=== PATIENT | female | born 1950 | race Caucasian/White ===

== ENCOUNTER 2021-01-28 14:36 | Outpatient (REF) | payer MEDICARE, SELFPAY ==
[2021-01-28 16:28] LABS: Vitamin B12 572 pg/mL (200-900)
[2021-01-29 08:38] LABS: Syphilis Screen Reactive (Nonreactive)
[2021-02-08 13:57] LABS: RPR Quantitative Non-Reactive (Nonreactive); T.Pallidum Particle Agg Test Reactive (Nonreactive)
== END 2021-01-28 14:37 | disposition home or self-care (01) ==
LOC: HO.LAB 14:36
PROVIDERS: PCP Family Medicine; Visit Provider Psychiatry & Neurology Neurology
DX: G31.84 Mild cognitive impairment of uncertain or unknown etiology (principal)
CPT/HCPCS: 36415; 82607; 86592; 86780

== ENCOUNTER 2021-02-22 15:02 | Outpatient (REF) | payer MEDICARE, SELFPAY ==
--- NOTE | ~2021-02-22 | MR_ITS ---
EXAMINATION: MR BRAIN WITHOUT CONTRAST CLINICAL INFORMATION: Mild cognitive impairment. COMPARISON: None. TECHNIQUE: Multiplanar, multisequence imaging of the brain was performed without contrast. Slightly limited study with motion artifacts. FINDINGS: No diffusion abnormalities are identified to suggest an acute or subacute infarct. The ventricles are normal in size. No mass effect or midline shift is seen. Nonspecific mild subcentimeter foci of T2 hyperintense signal change in the cerebral white matter may be due to chronic microangiopathy. No extra-axial fluid collections are seen. The brainstem and cerebellum are normal. The gradient refocused acquisition is normal. The craniovertebral junction, marrow signal, and midline structures are normal. The major intracranial flow voids at the level of the [place] of [place] are preserved. The dural venous sinus flow voids are maintained. The mastoid air cells and paranasal sinuses are well aerated. Extensive spondylitic changes noted with disc-osteophyte complexes and facet arthropathy on sagittal T1-weighted imaging from the C3 through the C6 level. MR/MR head/brain wo con IMPRESSION: No acute process. Mild chronic white matter microangiopathy. Moderate multilevel cervical spondylosis partially visualized.
== END 2021-02-22 15:03 | disposition home or self-care (01) ==
LOC: HO.MRI 15:02
PROVIDERS: Visit Provider Psychiatry & Neurology Neurology
DX: G31.84 Mild cognitive impairment of uncertain or unknown etiology (principal)
CPT/HCPCS: 70551

== ENCOUNTER 2024-09-11 17:54 | Emergency (ER) | payer OTHER, SELFPAY ==
--- NOTE | ~2024-09-11 | XR_ITS ---
CLINICAL HISTORY: weakness 1 view chest x-ray Comparison: None Findings: No consolidation or effusion. Mild emphysematous changes suggested. No pneumothorax. Heart size is normal, for AP technique. Degenerative changes include imaged AC joints. IMPRESSION: No consolidation. This document has been electronically signed by: Jose E Vilchis MD on 09/11/2024 20:17:32
[2024-09-11 17:57] VITALS: BP 116/50; BP 132/62; PULSE 84; PULSE 85; RESP 16; TEMP 36.4; O2SAT 97; O2SAT 98; BMI 26.0
[2024-09-11 18:55] VITALS: BP 125/57; PULSE 78; RESP 16; TEMP 36.7; O2SAT 98
[2024-09-11 19:02] LABS: Appearance Urine Cloudy; Color Urine Yellow; Glucose Urine UA >=1000 mg/dL (Negative); Leukocyte Esterase Urine Moderate (2+) (Negative); Nitrite Urine Negative (Negative); PH 5.5 (5.0-9.0); UMIC TRIGGER UACC YES; Urine Blood Negative (Negative); Urine Ketones Negative (Negative); Urine Protein 30 (1+) mg/dL (Neg-Trace)
[2024-09-11 19:07] LABS: Bacteria Urine 4+ (None Seen); Hyaline Casts Urine 0-2 /LPF (0-2); RBC Urine 0-2 /HPF (0-2); Squamous Epithelial Cell Urine 0-2 /HPF (0-2); UACC Culture Trigger YES; WBC Urine >50 /HPF (0-5)
--- NOTE | 2024-09-11 19:29 | ED.GENADULT ---
HPI - General Adult General Chief complaint: Weakness Stated complaint: weakness x 1day Time Seen by Provider: 09/11/24 19:29 History of Present Illness ED Provider: Connie SILVER narrative: The patient is a 74-year-old female who lives at home with her family. She has been feeling very weak since yesterday. Today she felt so weak her family called 911 and she was brought to the hospital. The patient states that she feels generally weak. She does not know if she has had a fever. No cough or sputum. Related Data Previous Rx's ?Medication ?Instructions ?Recorded cefpodoxime 100 mg tablet 100 mg PO BID 5 days #10 tabs 09/12/24 Allergies Allergy/AdvReac Type Severity Reaction Status Date / Time Penicillins [PCN] Allergy Unknown Verified 09/11/24 18:29 Review of Systems Review of Systems: Yes all other systems are reviewed and are negative [facility] Social History Social History Advance Directives: Yes Advance Directives on File: Yes Advance Directives Date on File: 01/28/21 Physical Exam ED Vital Signs: Vital Signs - 24 hr 09/11/24 17:57 09/11/24 18:55 09/11/24 19:41 Temperature 97.6 F 98.1 F 98.7 F Pulse Rate 85 78 92 Respiratory Rate 16 16 16 Blood Pressure 132/62 125/57 L 116/64 Pulse Oximetry 97 98 97 Oxygen Delivery Method Room Air Room Air Room Air 09/11/24 21:56 Temperature 98.3 F Pulse Rate 81 Respiratory Rate 14 Blood Pressure 122/60 Pulse Oximetry 100 Oxygen Delivery Method Room Air BMI result Body Mass Index 26.0 Const Other: The patient is a frail older woman who was sleepy. She awoke easily with verbal stimulation to a reasonably normal mental status. She looks chronically ill and somewhat weak. She did not seem in respiratory distress. HENMT Other: Face is symmetrical. Mucous membranes moist. Eyes Other: Pupils are round equal, conjunctivae are clear, extraocular movements are intact. Neck Neck: Yes full ROM and Yes no JVD Resp Effort & Inspection: normal respiratory effort Auscultation: clear to auscultation bilaterally Cardio Rate: regular rate Rhythm: regular rhythm Heart sounds: S1 normal heart sound present and S2 normal heart sound present GI Other: Abdomen is soft and nontender Skin Other: The skin is dry and unremarkable Neuro Other: The patient is awake and alert. She apparently has a history of dementia but she seemed fairly coherent. Cranial nerves are intact. She moves her extremities symmetrically. She seems grossly neurologically intact. Extrem Other: No peripheral edema Medications Administered Discontinued Medications Generic Name Dose Route Start Last Admin Trade Name Anu PRN Reason Stop Dose Admin Ceftriaxone Sodium 1 gm 09/11/24 20:49 09/11/24 20:57 Ceftriaxone Sodium 1 Gm Vial IVPUSH 09/11/24 20:50 1 gm ONCE ONE Administration Lactated Ringer's 1,000 mls @ 999 mls/hr 09/11/24 22:00 09/11/24 23:14 Lr IV 09/11/24 23:00 999 mls/hr .Q1H1M PACO Administration Medical Decision Making Medical Decision Making [facility] Narrative: The patient is a 74-year-old woman who lives at home with her daughter. She comes with a 1 day history of weakness. She seems to have urinary frequency although she denies any urinary discomfort. She was frequently asking to use the commode. She complains of feeling weak and tired but has no other more specific complaints. Her workup in the emergency room shows a white count of 7.7. Differential is 43% neutrophils and 42% lymphocytes. Her basic metabolic panel shows a BUN of 40 and a creatinine of 1.87. She apparently has a history of chronic kidney disease but we have no old values for comparison. Carbon dioxide slightly low at 18. No anion gap. EKGs unremarkable. Troponin is normal. CRP is 0.17. Urinalysis shows 2+ leukocyte esterase, greater than 50 white cells, and 4+ bacteria. I suspect she has a UTI. She was given 1 g of IV ceftriaxone. I attempted to get old records from [facility] in hopes of determining the patient's baseline renal function. Unfortunately the records that I obtained from [facility] did not have any lab values relating to her renal function, although they did state that she has a history of chronic kidney disease. Given that she has some degree of chronic kidney disease and given that she does not seem septic or toxic in any way I felt that if we were to give her 1 L of IV fluids that she would probably be well enough to be discharged and follow up with her PCP. Lab Data 09/11/24 20:15 09/11/24 20:15 Labs: Lab Results 09/11/24 09/11/2425 Range/Units 18:52 20:15 20:16 WBC 7.7 (4.8-10.8) X10*3/uL RBC 3.29 L (4.20-5.50) X10*6/uL Hgb 9.7 L (12.0-16.0) g/dl Hct 28.5 L (37.0-47.0) % MCV 86.6 (80.0-98.0) fL MCH 29.5 (27.0-33.0) pg MCHC 34.0 (31.0-35.0) g/dl RDW 14.9 (11.0-16.0) % Plt Count 209 (160-400) X10*3/uL MPV 10.4 (9.4-12.3) fL Immature Gran % (Auto) 0.3 (0.0-0.4) % Neut % (Auto) 43.7 L (45-73) % Lymph % (Auto) 42.4 H (20-40) % [place] % (Auto) 10.3 (2-11) % Eos % (Auto) 2.9 (0-4) % Baso % (Auto) 0.4 (0-2) % Lymph # (Auto) 3.3 (1.2-4.9) X10*3/uL [place] # (Auto) 0.8 (0.1-1.2) X10*3/uL Eos # (Auto) 0.2 (0.0-0.4) X10*3/uL Baso # (Auto) 0.0 (0.0-0.2) X10*3/uL Abs Immat Gran (auto) 0.02 (0.00-0.03) X10*3/uL Absolute Neuts (auto) 3.4 (2.0-8.3) x10*3/uL Absolute Nucleated RBC 0.000 (0.0-0.012) X10*3/uL Nucleated RBC % (auto) 0.0 (0.0-0.2) /100WBC Sodium 137 (135-145) mmol/L Potassium 4.4 (3.3-5.1) mmol/L Chloride 113 H (96-108) mmol/L Carbon Dioxide 18 L (22-29) mmol/L Anion Gap 10 L (12-20) BUN 40 H (9-16) mg/dL Creatinine 1.87 H (0.5-1.4) mg/dL Estim Creat Clear Calc 20.8 Estimated GFR 26 Random Glucose 92 (60-115) mg/dL Lactic Acid 0.7 (0.5-2.0) mmol/L Calcium 8.3 L (8.4-10.2) mg/dL Magnesium 1.6 (1.6-2.6) mg/dL Total Bilirubin 0.3 (0.0-1.0) mg/dL Direct Bilirubin 0.1 (0.0-0.5) mg/dL AST 22 (5-31) U/L ALT 19 (0-31) U/L Alkaline Phosphatase 87 (39-117) U/L Troponin I High Sens 5.9 (<3.5-17.0) ng/L C-Reactive Protein 0.17 (< or = 0.50) mg/dL Total Protein 6.5 (6.5-8.0) g/dL Albumin 3.7 (3.5-5.0) g/dL Urine Color Yellow Urine Appearance Cloudy Urine pH 5.5 (5.0-9.0) Ur Specific [place] 1.020 (1.005-1.025) Urine Protein 30 (1+) H (Neg-Trace) mg/dL Urine Glucose (UA) >=1000 H (Negative) mg/dL Urine Ketones Negative (Negative) mg/dL Urine Blood Negative (Negative) Urine Nitrite Negative (Negative) Ur Leukocyte Esterase Moderate (2+) H (Negative) Urine RBC 0-2 (0-2) /HPF Urine WBC >50 H (0-5) /HPF Ur Squamous Epith Cells 0-2 (0-2) /HPF Urine Bacteria 4+ (None Seen) Hyaline Casts 0-2 (0-2) /LPF Influenza Type A (PCR) (Negative) Influenza Type B (PCR) (Negative) RSV RNA Qual (PCR) (Negative) SARS-CoV-2 RNA (RT-PCR) (Negative) 09/11/24 Range/Units 20:55 WBC (4.8-10.8) X10*3/uL RBC (4.20-5.50) X10*6/uL Hgb (12.0-16.0) g/dl Hct (37.0-47.0) % MCV (80.0-98.0) fL MCH (27.0-33.0) pg MCHC (31.0-35.0) g/dl RDW (11.0-16.0) % Plt Count (160-400) X10*3/uL MPV (9.4-12.3) fL Immature Gran % (Auto) (0.0-0.4) % Neut % (Auto) (45-73) % Lymph % (Auto) (20-40) % [place] % (Auto) (2-11) % Eos % (Auto) (0-4) % Baso % (Auto) (0-2) % Lymph # (Auto) (1.2-4.9) X10*3/uL [place] # (Auto) (0.1-1.2) X10*3/uL Eos # (Auto) (0.0-0.4) X10*3/uL Baso # (Auto) (0.0-0.2) X10*3/uL Abs Immat Gran (auto) (0.00-0.03) X10*3/uL Absolute Neuts (auto) (2.0-8.3) x10*3/uL Absolute Nucleated RBC (0.0-0.012) X10*3/uL Nucleated RBC % (auto) (0.0-0.2) /100WBC Sodium (135-145) mmol/L Potassium (3.3-5.1) mmol/L Chloride (96-108) mmol/L Carbon Dioxide (22-29) mmol/L Anion Gap (12-20) BUN (9-16) mg/dL Creatinine (0.5-1.4) mg/dL Estim Creat Clear Calc Estimated GFR Random Glucose (60-115) mg/dL Lactic Acid (0.5-2.0) mmol/L Calcium (8.4-10.2) mg/dL Magnesium (1.6-2.6) mg/dL Total Bilirubin (0.0-1.0) mg/dL Direct Bilirubin (0.0-0.5) mg/dL AST (5-31) U/L ALT (0-31) U/L Alkaline Phosphatase (39-117) U/L Troponin I High Sens (<3.5-17.0) ng/L C-Reactive Protein (< or = 0.50) mg/dL Total Protein (6.5-8.0) g/dL Albumin (3.5-5.0) g/dL Urine Color Urine Appearance Urine pH (5.0-9.0) Ur Specific [place] (1.005-1.025) Urine Protein (Neg-Trace) mg/dL Urine Glucose (UA) (Negative) mg/dL Urine Ketones (Negative) mg/dL Urine Blood (Negative) Urine Nitrite (Negative) Ur Leukocyte Esterase (Negative) Urine RBC (0-2) /HPF Urine WBC (0-5) /HPF Ur Squamous Epith Cells (0-2) /HPF Urine Bacteria (None Seen) Hyaline Casts (0-2) /LPF Influenza Type A (PCR) NEGATIVE (Negative) Influenza Type B (PCR) NEGATIVE (Negative) RSV RNA Qual (PCR) NEGATIVE (Negative) SARS-CoV-2 RNA (RT-PCR) NEGATIVE (Negative) Discharge Plan Discharge Clinical Impression: Urinary tract infection, Chronic kidney disease Patient Disposition: Home, Self-Care Additional Instructions: She seems to have a urinary tract infection today. An antibiotic has been sent to her pharmacy at [facility]. 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 Encourage fluids. Please plan on following up with her regular doctor soon. Her blood tests show that her kidney function is reduced. We do not have previous tests to see if this is new or whether this is a longstanding issue. I would recommend following up soon with her regular doctor to get her values compared to previous values and to get another recheck of her kidney function in the next week or so. Return to the emergency room if significantly worse. Prescriptions: New cefpodoxime 100 mg tablet 100 mg PO BID 5 Days Qty: 10 0RF Rx Instructions: must administer with a meal/food Referrals: Elidia Yarbrough MD [Physician] - (Urinary tract infection) Print Language: Venezuelan
[2024-09-11 19:41] VITALS: BP 116/64; PULSE 92; RESP 16; TEMP 37.1; O2SAT 97
--- NOTE | 2024-09-11 19:46 | ECG_ITS ---
Test Reason : weakness Blood Pressure : */* mmHG Vent. Rate : 74 BPM Atrial Rate : 74 BPM P-R Int : 152 ms QRS Dur : 128 ms QT Int : 398 ms P-R-T Axes : 52 -37 16 degrees QTcB Int : 441 ms Sinus rhythm with occasional Premature ventricular complexes Left axis deviation Right bundle branch block Abnormal ECG No previous ECGs available Referred By: Jimbo Rosales Electronically Signed By:
[2024-09-11 20:26] LABS: MANUAL DIFF FLAG NO
[2024-09-11 20:40] LABS: Basophils Percent Auto 0.4 % (0-2); Eosinophils Absolute Auto 0.2 X10*3/uL (0.0-0.4); Eosinophils Percent Auto 2.9 % (0-4); Hematocrit 28.5 % (37.0-47.0); Hemoglobin 9.7 g/dl (12.0-16.0); Imm Gran Abs Auto 0.02 X10*3/uL (0.00-0.03); Imm Gran Pct Auto 0.3 % (0.0-0.4); Lymphocytes Absolute Auto 3.3 X10*3/uL (1.2-4.9); Lymphocytes Percent Auto 42.4 % (20-40); Mean Corpuscular Hemoglobin 29.5 pg (27.0-33.0); Mean Corpuscular Volume 86.6 fL (80.0-98.0); Mean Platelet Volume 10.4 fL (9.4-12.3); Monocytes Absolute Auto 0.8 X10*3/uL (0.1-1.2); Monocytes Percent Auto 10.3 % (2-11); Neutrophils Absolute Auto 3.4 x10*3/uL (2.0-8.3); Neutrophils Percent Auto 43.7 % (45-73); Platelet Count 209 X10*3/uL (160-400); Red Blood Count 3.29 X10*6/uL (4.20-5.50); Red Cell Distribution Width 14.9 % (11.0-16.0); White Blood Count 7.7 X10*3/uL (4.8-10.8)
[2024-09-11 20:44] LABS: Lactic Acid 0.7 mmol/L (0.5-2.0)
[2024-09-11 20:45] LABS: Alanine Aminotransferase 19 U/L (0-31); Albumin Level 3.7 g/dL (3.5-5.0); Alkaline Phosphatase 87 U/L (39-117); Anion Gap 10 (12-20); Aspartate Amino Transferase 22 U/L (5-31); Bilirubin Direct 0.1 mg/dL (0.0-0.5); Bilirubin Total 0.3 mg/dL (0.0-1.0); Blood Urea Nitrogen 40 mg/dL (9-16); C Reactive Protein 0.17 mg/dL (< or = 0.50); Calcium 8.3 mg/dL (8.4-10.2); Carbon Dioxide 18 mmol/L (22-29); Chloride 113 mmol/L (96-108); Creatinine Clr Calc Pharmacy 20.8; Estimated Glomerular Filt Rate 26; Glucose Random 92 mg/dL (60-115); Magnesium 1.6 mg/dL (1.6-2.6); Potassium 4.4 mmol/L (3.3-5.1); Sodium 137 mmol/L (135-145); Total Protein 6.5 g/dL (6.5-8.0)
[2024-09-11 20:52] LABS: Troponin-I High Sensitivity 5.9 ng/L (<3.5-17.0)
[2024-09-11] MEDS: cefTRIAXone sodium 1 GM VIAL IVPUSH (20:57)
[2024-09-11 21:35] LABS: Influenza A PCR NEGATIVE (Negative); Influenza B PCR NEGATIVE (Negative); Resp Syncy Virus RNA Qual PCR NEGATIVE (Negative); SARS COV2 PCR INHOUSE NEGATIVE (Negative)
[2024-09-11 21:56] VITALS: BP 122/60; PULSE 81; RESP 14; TEMP 36.8; O2SAT 100
[2024-09-11] MEDS: Lactated Ringers 1,000 ML 999 ML IV (23:14)
[2024-09-12 00:38] VITALS: BP 128/62; PULSE 78; RESP 16; TEMP 36.3; O2SAT 96
--- NOTE | 2024-09-12 00:39 | MHC.EDTECH ---
This pct assumed care of Patient at 2300 ,vitals taken ,Patient was assisted to get dress and was transported to her daughter car .
[2024-09-12 00:48] VITALS: BP 128/62; PULSE 78; RESP 16; TEMP 36.3; O2SAT 96
== END 2024-09-12 00:53 | disposition home or self-care (01) ==
PROVIDERS: Emergency Provider Emergency Medicine
DX: N39.0 Urinary tract infection, site not specified (principal); R53.1 Weakness; R35.0 Frequency of micturition; I45.10 Unspecified right bundle-branch block; R94.31 Abnormal electrocardiogram [ECG] [EKG]; Z03.818 Encounter for observation for suspected exposure to other biological agents ruled out; Z79.899 Other long term (current) drug therapy
CPT/HCPCS: 0241U; 36415; 71045; 80048; 80076; 81001; 81003; 83605; 83735; 84484; 85025; 86140; 87040; 87086; 87088; 87186; 93005; 96374; 99284; 99285; J0696; J7120

== ENCOUNTER → 2024-09-11 19:48 | Outpatient (BNV) | payer MEDICARE, SELFPAY | PROVIDERS: Emergency Provider Emergency Medicine; Visit Provider Radiology Neuroradiology | DX: R53.1 Weakness (principal) | CPT/HCPCS: 71045 ==

== ENCOUNTER 2024-09-30 19:41 | Emergency (ER) | payer OTHER, SELFPAY ==
[2024-09-30 20:17] VITALS: BP 136/54; PULSE 87; RESP 18; TEMP 36.8; O2SAT 100; BMI 26.3
--- NOTE | 2024-09-30 20:32 | ED.GENADULT ---
HPI - General Adult General Chief complaint: General Medical Stated complaint: rectal pain Time Seen by Provider: 10/01/24 00:11 Source: patient Mode of arrival: ambulatory Limitations: no limitations History of Present Illness ED Provider: DR. Powers HPI narrative: This is a 74-year-old female came in for evaluation of feeling protrusion of hemorrhoid after having a bowel movement. Otherwise patient has no abdominal pain, no rectal pain, no rectal bleeding, no nausea, no vomiting, no constipation, no diarrhea. Patient is complaining of frequency urination without dysuria. Related Data Previous Rx's ?Medication ?Instructions ?Recorded cefpodoxime 100 mg tablet 100 mg PO BID 5 days #10 tabs 09/12/24 nitrofurantoin 100 mg PO Q12H 7 days #14 caps 10/01/24 monohydrate/macrocrystals 100 mg capsule (Macrobid) Allergies Allergy/AdvReac Type Severity Reaction Status Date / Time Penicillins [PCN] Allergy Unknown Verified 09/30/24 20:21 Review of Systems Review of Systems: All other systems are reviewed and are negative Constitutional: Reports as per HPI and Reports no additional constitutional complaints Eyes: Reports as per HPI and Reports no additional eye complaints Reports system reviewed and no additional complaints, except as documented Cardiovascular: Reports as per HPI and Reports no additional cardiovascular complaints Respiratory: Reports as per HPI and Reports no additional respiratory complaints Gastrointestinal: Reports as per HPI and Reports no additional gastrointestinal complaints Genitourinary: Reports no additional female genitourinary complaints Musculoskeletal: Reports no additional musculoskeletal complaints Skin/Breast: Reports system reviewed and no additional complaints, except as docu Psychiatric: Reports no additional psychiatric complaints Endocrine: Reports no additional endocrine complaints Hematologic/Lymphatic: Reports no additional hematologic/lymphatic complaints Allergic/Immunologic: Reports no additional allergic/immunologic complaints Reports system reviewed and no additional complaints, except as documented and Reports Abnormal speech present REPLACED BY [facility] Social History Social History Use of substances other than those prescribed or required for medical reasons: No Advance Directives: Yes Advance Directives Information Provided: Yes Advance Directives on File: Yes Advance Directives Date on File: 01/28/21 Physical Exam ED Vital Signs: Vital Signs - 24 hr 09/30/24 20:17 10/01/24 00:16 10/01/24 00:58 Temperature 98.2 F 97.2 F 97.2 F Pulse Rate 87 86 86 Respiratory Rate 18 20 20 Blood Pressure 136/54 L 157/75 H 157/75 H Pulse Oximetry 100 98 98 Oxygen Delivery Method Room Air Room Air Room Air BMI result Body Mass Index 26.3 Vital signs have been reviewed and appear to be correct. Blood pressure elevated. Heart rate normal. Respiratory rate normal. Temperature normal. Oxygen saturation normal. Appearance: Alert. Oriented X3. No acute distress. Head: Normal external exam. Normocephalic. Atraumatic. No Kramer signs noted. No raccoon eyes noted Eyes: PERRLA. EOMI. Conjunctiva and sclera normal. Eyelids normal. ENT: TM's Normal. Pharynx normal. Uvula midline. Moist mucous membranes. No trismus noted. No drooling noted. No muffled voice noted. Neck: Normal inspection. Neck supple. FROM. No adenopathy. Thyroid Normal. No meningeal signs. No neck mass noted. CVS: Normal heart rate and rhythm. Heart sound normal. No murmurs noted. Pulses normal throughout. Respiratory: No respiratory distress. Painless inspiration. Breath sounds normal. No wheezes/rales/rhonchi noted. Chest nontender. No accessory muscle usage noted or decreased air movement noted. Abdomen: Soft and nontender. Bowel sounds normal in all 4 quadrants. No distention noted. No organomegaly noted. No visible injury noted. Rectal exam: Nonthrombosed, nontender external hemorrhoid at 06:00 area, no bleeding, guaiac is negative for blood, no rectal mass or fluctuation or suspicion for abscess. Back: No CVA tenderness. Full range of motion noted. Skin: Skin warm and dry. Normal skin color. Normal skin turgor. No rashes/lesions/lacerations noted. Extremities: No lower extremity edema. Extremities exhibit normal range of motion. Extremities nontender. Neuro: Oriented X 3. Cranial nerve exam: II-XII are grossly intact No motor deficit. No sensory deficit. Reflexes normal. Course Course Course Narrative: RME: 74 yold female presents to the ED for rectal pain. patient states she feels her hemmhoird is out. patient denies any abdomial pain or rectal bleeding. patient to be evaluated in [facility]. Reevaluation(s) Reevaluation #1: 74-year-old female with noncomplicated hemorrhoids. Frequency urination, UA reveals UTI. Will discharge to follow-up with general surgery for further evaluation. Time: 00:30 Medications Administered Discontinued Medications Generic Name Dose Route Start Last Admin Trade Name Anu PRN Reason Stop Dose Admin Nitrofurantoin Macrocrystals 100 mg 10/01/24 00:44 10/01/24 00:54 Nitrofurantoin Monohyd/M-Cryst 100 Mg Capsule PO 10/01/24 00:45 100 mg ONCE ONE Administration Medical Decision Making Differential Diagnosis Differential Diagnoses: The differential diagnosis associated with the presentation includes (Thrombosed hemorrhoid, rectal prolapse, rectal abscess, UTI.) Admission/Observation Consideration of admission/observation: Escalation of care including admission/observation considered Lab Data MDM Lab Attestation statement: I reviewed the patient's lab results. Labs: Lab Results 10/01/24 Range/Units 00:24 Urine Color Yellow Urine Appearance Clear Urine pH 5.5 (5.0-9.0) Ur Specific [place] 1.025 (1.005-1.025) Urine Protein 30 (1+) H (Neg-Trace) mg/dL Urine Glucose (UA) >=1000 H (Negative) mg/dL Urine Ketones Negative (Negative) mg/dL Urine Blood Negative (Negative) Urine Nitrite Negative (Negative) Ur Leukocyte Esterase Small (1+) H (Negative) Urine RBC 0-2 (0-2) /HPF Urine WBC 21-50 H (0-5) /HPF Ur Squamous Epith Cells 0-2 (0-2) /HPF Urine Bacteria None Seen (None Seen) Hyaline Casts 0-2 (0-2) /LPF Discharge Plan Discharge Clinical Impression: External hemorrhoids without complication, Acute UTI Patient Disposition: Home, Self-Care Instructions: Hemorrhoids (ED) Prescriptions: New nitrofurantoin monohyd/m-cryst [Macrobid] 100 mg capsule 100 mg PO Q12H 7 Days Qty: 14 0RF Rx Instructions: must administer with a meal/food No Action cefpodoxime 100 mg tablet 100 mg PO BID 5 Days Qty: 10 0RF Rx Instructions: must administer with a meal/food Referrals: Jose E Rashid MD [Primary Care Provider] - Gadiel Guzman MD [Physician] - Interventions: ED Discharge Assessment Last Done: 10/01/24 00:58 Discharge Date/Time: 10/01/24 00:59 Print Language: Z[place]ian
[2024-10-01 00:16] VITALS: BP 157/75; PULSE 86; RESP 20; TEMP 36.2; O2SAT 98
--- OUTSIDE RECORDS SUMMARY | 2024-10-01 00:16 | XMS_ITS | Clinical Summary ---
Author Organization [facility] [address] [facility] l[address] Address [address] [place] [address] Phone Care Team Providers Care Foot Drill Operator Name Role Phone Elidia Yarbrough MD Primary Care Prov ider Allergies Active Allergy Reactions Criticality Noted Date Comments Tramaine Inhibitors Cough 08/05/2019 Allergenic Ext, Mixed Feathers 02/17/2023 Amoxicillin Nausea And Vomiting,Rash 04/20/2015 Cat's Claw Itching 02/17/2023 House Dust 02/17/2023 Other 02/17/2023 Spider bite Medications albuterol HFA (PROAIR HFA ; PROVENTIL HFA ; VENTOLIN HFA) 90 mcg/actuation inhaler Take 2 Puffs by mouth every 6 hours as needed for Cough or Wheezing (As needed). 02/02/20 24 Active blood sugar diagnostic (FreeStyle Lite Strips) test strip 1 Device by In Vitro route daily. Dxe11.65 03/08/20 24 Active FREESTYLE LANCETS MISC 1 Device by Does not apply route daily Active blood-glucose meter kit Apply topically if needed (check blood sugar). 1 Device by Does not apply route daily. 1 each 06/13/20 24 Active valsartan (DIOVAN) 80 mg tablet Take 1 tablet (80 mg total) by mouth 1 (one) time each day. 90 tablet 1 09/21/19 25 Active alendronate (FOSAMAX) 70 mg tablet Take 1 tablet (70 mg total) by mouth every 7 (seven) days. 12 tablet 09/21/19 25 Active fluticasone propionate (FLONASE) 50 mcg/actuation nasal spray Administer 2 sprays into each nostril 1 (one) time each day. Shake gently. Before first use, prime pump. After use, clean tip and replace cap. 16 g 5 09/21/19 25 2025 Active atorvastatin (LIPITOR) 80 mg tablet Take 1 tablet (80 mg total) by mouth 1 (one) time each day. 90 each 1 09/21/19 25 2024 Active dulaglutide (Trulicity) 3 mg/0.5 mL pen injector injectionIndicat ions:Uncontrolle d type 2 diabetes mellitus with hyperglycemia (CMS/HCC) Inject 0.5 mL (3 mg total) under the skin every 7 (seven) days. 2 mL 2 09/21/19 25 Active empagliflozin (Jardiance) 10 mg tablet Take 1 tablet (10 mg total) by mouth 1 (one) time each day in the morning. 90 tablet 1 09/21/19 25 2024 Active gabapentin (NEURONTIN) 100 mg capsule Take 1 capsule (100 mg total) by mouth 3 (three) times a day. 90 capsule 1 09/21/19 25 Active atorvastatin (LIPITOR) 80 mg tablet 06/11/202024 Discontinued(R eorder) empagliflozin (Jardiance) 10 mg tablet Take 1 tablet (10 mg total) by mouth 1 (one) time each day in the morning. 03/08/20 24 2024 Discontinued(R eorder) losartan (COZAAR) 50 mg tablet Take 1 tablet (50 mg total) by mouth 1 (one) time each day. 02/16/20 24 2024 Discontinued valsartan (DIOVAN) 80 mg tablet Take 1 tablet (80 mg total) by mouth 1 (one) time each day. 04/05/20 24 2024 Discontinued(R eorder) alendronate (FOSAMAX) 70 mg tablet TAKE 1 TABLET BY MOUTH EVERY 7 DAYS. 12 tablet 07/04/19 25 2024 Discontinued(R eorder) dulaglutide (Trulicity) 3 mg/0.5 mL pen injector injection Inject 0.5 mL (3 mg total) under the skin every 7 (seven) days. 2 mL 08/08/19 25 2024 Discontinued(R eorder) gabapentin (NEURONTIN) 100 mg capsule Take 1 capsule (100 mg total) by mouth 3 (three) times a day. 90 capsule 1 08/08/19 25 2024 Discontinued(R eorder) valsartan (DIOVAN) 80 mg tablet Take 1 tablet (80 mg total) by mouth 1 (one) time each day. 90 tablet 09/06/19 25 2024 Discontinued(R eorder) Active Problems Problem Noted Date Diagnosed Date Urinary and fecal incontinence 06/03/2024 Compression fracture of cervical spine with rout ine healing 06/13/2023 Overview (04/08/2024): After a fall Iron deficiency 03/22/2023 Memory loss or impairment 03/20/2023 RBBB 05/14/2021 Overview (04/08/2024): Stress echo pending 05/14/2021 Stage 3 chronic kidney disease 04/20/2020 Esophageal reflux 04/18/2019 Hiatal hernia 03/05/2019 Schatzki's ring 03/05/2019 Uncontrolled type 2 diabetes mellitus with hypog lycemia 04/17/2017 Uncontrolled diabetes mellitus with hyperglycemi a 03/22/2016 Allergic rhinitis due to pollen 04/20/2015 Asthma exacerbation attacks 04/20/2015 Essential hypertension 04/20/2015 Gastroparesis 04/20/2015 Hypercholesteremia 04/20/2015 Osteoporosis 04/20/2015 Encounters Date Type Department Care Team Description 09/20/2024 10:15 AM EDT Office Visit Adult Medicine [facility] [address] [place] [id number] Irma Boggs PA Stage 3 chronic kidney disease, unspecified whether stage 3a or 3b CKD (CMS/HCC) (Primary Dx); Osteoporosis, unspecified osteoporosis type, unspecified pathological fracture presence; Essential hypertension; Memory loss or impairment; Uncontrolled type 2 diabetes mellitus with hyperglycemia (CMS/HCC); Hypercholesteremia; Post-nasal drip 08/26/2024 Telephone Adult Medicine [facility] [address] [place] [address] Elidia Sorto MD Diarrhea 07/29/2024 Telephone Adult [place] [address] [place] [address] Elidia Sorto MD from Last 3 Months Immunizations Name Administration Dates Next Due COVID-19 (Moderna/Spikevax) 12yo and older 06/02/2023 Influenza trivalent, 0.5mL ( Fluad) 65yo and older 03/07/2023,04/29/2021,04/08/2020,04/15,05/24/2018,04/17/2017,04/20/2015 Influenza trivalent, with pr eservative (Fluzone; Afluria) 6mo and older 02/09/2016 Pneumococcal conjugate 13 va lent (Prevnar 13, PCV13) 2mo and older 03/22/2016 Pneumococcal conjugate 20 va lent (Prevnar 20, PCV 20) 2mo and older 03/07/2023 Pneumococcal polysaccharide 23 valent (Pneumovax 23) 2yo and older 07/18/2017 Tdap Tetanus diptheria acell ular pertussis (Boostrix; Adacel) 7yo and older 03/22/2016 Zoster recombinant (Shingrix ) 19yo and older 07/12/2021,12/04/2020 Surgical History Surgery Date Site/Laterality Comments EYE SURGERY 2011 PROCEDURE: HISTORICAL EYE SURGERY; COMMENT: bilateral cataract Medical History Medical History Date Comments Type 2 diabetes mellitus wit hout complication 04/20/2015 DX:Type 2 diabetes mellitus without complication (HCC) Asthma exacerbation attacks 04/20/2015 DX:A sthma exacerbation attacks Essential hypertension 04/20/2015 DX:Essent ial hypertension Hypercholesteremia 04/20/2015 DX:Hyperchole steremia Osteoporosis 04/20/2015 DX:Osteoporosis Gastroparesis 04/20/2015 DX:Gastroparesis Allergic rhinitis due to pollen 04/20/2015 DX:Allergic rhinitis due to pollen DM type 2, uncontrolled, wit h renal complications 03/22/2016 DX:DM type 2, uncontrolled, with renal complications DM (diabetes mellitus) type II uncontrolled, periph vascular disorder 04/17/2017 DX:DM (diabetes mellitus) type II uncontrolled, periph vascular disorder Illiterate 07/18/2017 DX:Illiterate Rbbb 05/14/2021 DX:RBBB; COMMENT : Stress echo pending 05/14/2021 Iron deficiency 03/22/2023 DX:Iron deficien cy Family History Relation Name Status Comments Father Mother Social History Tobacco Use Types Packs/Day Years Used Date Smoking Tobacco: Never Smokeless Tobacco: Never Tobacco Cessation:Counseling Given: No Alcohol Use Standard Drinks/Week Comments No 0 (1 standard drink = 0.6 oz pur e alcohol) Comments No Sex and Gender Information Value Date Recorded Sex Assigned at Not on file Legal Sex Female 5:37 AM EST Gender Identity Female 09/12/2024 2:46 PM EDT Sexual Orientation Straight 09/12/2024 2: 46 PM EDT Obstetrics History Last Filed Vital Signs Vital Sign Reading Time Taken Comments Blood Pressure 110/50 09/20/2024 10:41 AM EDT Pulse 60 09/20/2024 10:25 AM EDT Temperature 36.8 ??C (98.3 ??F) 09/20/2024 10:25 AM E DT Respiratory Rate - - Oxygen Saturation - - Inhaled Oxygen Concentration - - Weight 53.5 kg (118 lb) 09/20/2024 10:25 AM EDT Height 149.9 cm (4' 11 ) 06/03/2024 3:31 PM EST Body Mass Index 23.83 06/03/2024 3:31 PM EST Plan of Treatment Upcoming Encounters Date Type Department Care Team (Late st Contact Info) Description 10/29/2024 11:15 AM EDT Office Visit Adult Medicine [facility] [address] [place] [phone] Elidia Yarbrough MD [address] [place] [address] Health Maintenance Due Date Last Done Comments Diabetes: Annual Foot Exam 1961 Diabetes: Annual Retina Eye Exam 1961 RSV Immunization Adult Patients (1 - Risk 60-74 years 1-dose series) 2011 Colorectal Cancer Screening: Colonoscopy 06/04/2022 Osteoporosis Screening (Bone Density Screening) 06/04/2022 Social Influencers of Health Screening 06/04/2022 COVID-19 Vaccine ( season) 2024 06/02/2023, 07/12/2021, 12/04/2020 Influenza Vaccine (Season Ended) 2025 03/07/2023, 04/29/2021, 04/08/2020, Additional history exists Diabetes: Blood Sugar Control Test (HGBA1C) 03/23/2025 09/20/2024, 01/02/2024, 01/02/2024 Breast Cancer Screening 04/06/2025 04/06/20 23, 07/20/2020, 07/17/2019 Diabetes: Annual Urine Albumin-Creatinine Ratio (uACR) 05/10/2025 05/10/2024, 10/20/2022 Depression Screening 06/13/2025 06/13/2024 Falls Risk Assessment 06/13/2025 06/13/2024 Medicare Annual Wellness Visit 06/13/2025 06/13/2024 Diabetes: Annual GFR (Glomerular Filtration Rate) 09/20/2025 09/20/2024, 05/10/2024, 05/10/2024, Additional history exists Hypertension/CHF/CAD Annual BMP Blood Test 09/20/2025 09/20/2024, 05/10/2024, 05/10/2024, Additional history exists DTaP,Tdap,and Td Vaccines (2 - Td or Tdap) 03/22/2026 03/22/2016 Cholesterol Screening (Lipid Panel) 09/20/2029 09/20/2024, 10/20/2022 Hepatitis C Screening Completed 07/16/2015 Zoster Vaccines Completed 07/12/2021, 12/04/2020 Pneumococcal Vaccine: 50+ Years Completed 03/07/2023, 07/18/2017, 03/22/2016 HIB Vaccines Aged Out No longer eligi ble based on patient's age to complete this topic HPV Vaccines Aged Out No longer eligi ble based on patient's age to complete this topic Hepatitis A Vaccines Aged Out No long er eligible based on patient's age to complete this topic Hepatitis B Vaccines Aged Out No long er eligible based on patient's age to complete this topic IPV Vaccines Aged Out No longer eligi ble based on patient's age to complete this topic MMR Vaccines Aged Out No longer eligi ble based on patient's age to complete this topic Meningococcal ACWY Vaccine Aged Out N o longer eligible based on patient's age to complete this topic Meningococcal B Vaccine Aged Out No l onger eligible based on patient's age to complete this topic RSV Immunization Patients Under 20 months Aged Out No longer eligible based on patient's age to complete this topic Varicella Vaccines Aged Out No longer eligible based on patient's age to complete this topic Procedures Procedure Name Priority Date/Time Associated Diagnosis Comments BASIC METABOLIC PANEL Routine 09/20/2024 11:18 AM EDT Stage 3 chronic kidney disease, unspecified whether stage 3a or 3b CKD ([facility]/HCC) LIPID PANEL WITH REFLEX TO DIRECT LDL Routine 09/20/2024 11:18 AM EDT Hypercholesteremia HEMOGLOBIN A1C Routine 09/20/2024 11:18 AM EDT Uncontrolled type 2 diabetes mellitus with hyperglycemia ([facility]) [facility] SCREENING DIGITAL Routine 04/06/2023 3:12 PM EDT Encounter for screening mammogram for malignant neoplasm of breast URINE ALBUMIN CREATININE RATIO Routine 10/20/2022 HEPATITIS C SCREENING Routine 07/16/2015 from Last 3 Months or Most Recently Relevant to Health Maintenance Results * Lipid panel with reflex to direct LDL (09/20/2024 11:18 AM EDT) Cholesterol 121 0 - 200 mg/dL LAB CHEMISTRY METHOD 09/20/2024 2:49 PM EDT [facility] Triglycerides 134 0 - 150 mg/dL LAB CHEMISTRY METHOD 09/20/2024 2:49 PM EDT [facility] HDL 66 >=40 mg/dL LAB CHEMISTRY METHOD 09/20/2024 2:49 PM EDT [facility] LDL Calculated 28 0 - 100 mg/dL LAB CHEMISTRY METHOD 09/20/2024 2:49 PM EDT [facility] VLDL Cholesterol Moises 26.8 mg/dL LAB CHEMISTRY METHOD 09/20/2024 2:49 PM EDT [facility] Non HDL Chol. (LDL+VLDL) 55 <145 mg/dL LAB CHEMISTRY METHOD 09/20/2024 2:49 PM EDT [facility] Chol/HDL Ratio 1.8 0.0 - 4.4 LAB CHEMISTRY METHOD 09/20/2024 2:49 PM EDT [facility] Blood Venous blood specimen / Unknown Venipuncture / Unknown 09/20/2024 11:18 AM EDT 09/20/2024 11:18 AM EDT Irma RICHARDSON LAB BLOOD ORDERABLES Final Result [facility] [address] [place] [address], [place] [phone] * (ABNORMAL) Hemoglobin A1c (09/20/2024 11:18 AM EDT) Hemoglobin A1C 6.6(H) <6.5 % LAB CHEMISTRY METHOD 09/20/2024 2:47 PM EDT [facility] Mean Bld Glu Estim. 143 mg/dL LAB CHEMISTRY METHOD 09/20/2024 2:47 PM EDT [facility] Blood Venous blood specimen / Unknown Venipuncture / Unknown 09/20/2024 11:18 AM EDT 09/20/2024 11:18 AM EDT Irma RICHARDSON LAB BLOOD ORDERABLES Final Result [facility] [address] [place] [address], [place] [phone] * (ABNORMAL) Basic metabolic panel (09/20/2024 11:18 AM EDT) Sodium 135 133 - 145 mmol/L LAB CHEMISTRY METHOD 09/20/2024 2:49 PM EDT [facility] Potassium 5.1 3.5 - 5.5 mmol/L LAB CHEMISTRY METHOD 09/20/2024 2:49 PM EDT [facility] Chloride 109 96 - 110 mmol/L LAB CHEMISTRY METHOD 09/20/2024 2:49 PM [facility] CO2 21 21 - 32 mmol/L LAB CHEMISTRY METHOD 09/20/2024 2:49 PM T [facility] Anion Gap 5 3 - 11 LAB CHEMISTRY METHOD 09/20/2024 2:49 PM [facility] Glucose 182(H) 70 - 100 mg/dL LAB CHEMISTRY METHOD 09/20/2024 2:49 PM [facility] BUN 31(H) 5 - 25 mg/dL LAB CHEMISTRY METHOD 09/20/2024 2:49 PM [facility] Creatinine 1.67(H) 0.50 - 1.10 mg/dL LAB CHEMISTRY METHOD 09/20/2024 2:49 PM [facility] eGFR 32(L) >=60 mL/min/1. 73m2 LAB CHEMISTRY METHOD 09/20/2024 2:49 PM [facility] Comment:Calculation based on the??Chronic Kidney Disease Epidemiology Collaboration (CKD-EPI) equation refit??without adjustment for race. BUN/Creatinine Ratio 18.6 LAB CHEMISTRY METHOD 09/20/2024 2:49 PM [facility] Calcium 8.9 8.5 - 10.5 mg/dL LAB CHEMISTRY METHOD 09/20/2024 2:49 PM [facility] Blood Venous blood specimen / Unknown Venipuncture / Unknown 09/20/2024 11:18 AM EDT 09/20/2024 11:18 AM EDT us Irma RICHARDSON LAB BLOOD ORDERABLES Final Result [facility] [address] [place] [address], * NELLI SCREENING DIGITAL (04/06/2023 3:12 PM EDT) Anatomical Region Laterality Modality Mammography 04/05/2023 10:2 0 AM EDT Narrative 04/06/2023 3:12 PM EDT [facility] Diagnostic Imaging Department [address] [place] [address] Patient: ??AMY RAWLS M ?/Age/Sex: 1950 - 72 - F Unit#: ??[id number] ? Location/Status: ??SPDIMAM/REG CLI ? Mnemonic/Ordering Site: ??DIGSC/SPMAM Ordering Physician: ??MATT ROSENBERG [facility] Screening Digital - 04/05/23 - 1047 Report Status:Signed EXAM: [facility] Screening Digital EXAM DATE AND TIME: 04/05/2023 10:47 AM HISTORY: ??Screening. COMPARISON: ??07/20/20, 07/17/19, 04/03/15 TECHNIQUE: Bilateral digital breast tomosynthesis was performed in the CC and MLO projections. Computer aided detection with [employer] [place] 3D 3.1 was employed. TISSUE DENSITY: b. There are scattered areas of fibroglandular density. FINDINGS: No suspicious masses, grouped microcalcifications, or areas of architectural distortion are seen. Vascular calcification is present. The skin is unremarkable. IMPRESSION: Stable mammographic appearance of the breasts. ??No evidence of malignancy is seen. A negative mammogram in the presence of a clinically suspicious palpable abnormality does not preclude the possibility of malignancy or alter the indications for biopsy. BI-RADS: ??Category 2: Benign RECOMMENDATION(S): 1: Routine screening mammogram BILATERAL in 1 year. Dictating Physician: ??FUNMI MAJOR MD Electronically Signed by: ??FUNMI MAJOR MD Dic Date/Time: ??04/06/231511 Sign date/Time: ??04/06/231511 Procedure Note Funmi Major MD - 08/01/2023 [facility] Diagnostic Imaging Department [address] [place], [place] [id number] Patient: AMY RAWLS /Age/Sex: 1950 - 72 - F Unit#: [id number] Location/Status: [facility] Mnemonic/Ordering Site: [facility] Ordering Physician: MATT ROSENBERG [facility] Screening Digital - 04/05/23 - 1047 Report Status:Signed EXAM: [facility] Screening Digital EXAM DATE AND TIME: 04/05/2023 10:47 AM HISTORY: Screening. COMPARISON: 07/20/20, 07/17/19, 04/03/15 TECHNIQUE: Bilateral digital breast tomosynthesis was performed in the CCand MLO projections. Computer aided detection with iCAD Pro[employer] AI 3D 3.1was employed. TISSUE DENSITY: b. There are scattered areas of fibroglandular density. FINDINGS: No suspicious masses, grouped microcalcifications, or areas ofarchitectural distortion are seen. Vascular calcification is present. The skin is unremarkable. IMPRESSION: Stable mammographic appearance of the breasts. No evidence of malignancyis seen. A negative mammogram in the presence of a clinically suspicious palpable abnormality does not preclude the possibility of malignancy or alter the indications for biopsy. BI-RADS: Category 2: Benign RECOMMENDATION(S): 1: Routine screening mammogram BILATERAL in 1 year. Dictating Physician: FUNMI MAJOR MD Electronically Signed by: FUNMI MAJOR MD Dic Date/Time: 04/06/231511 Sign date/Time: 04/06/231511 Matt RICHARDSON IMG BI PROCEDURES Final Resul t * Urine Albumin Creatinine Ratio (10/20/2022) Urine Albumin Creatinine Ratio abstracted Historical Provider HEALTH MAINTENANCE Edited Result - Final * Hepatitis C Screening (07/16/2015) Hepatitis C Screening abstracted Historical Provider HEALTH MAINTENANCE Final Result from Last 3 Months or Most Recently Relevant to Health Maintenance Insurance MEDICARE Member Subscriber Plan / Payer (Ef fective 2024-Present) Name:Amy Rawls Relation to Subscriber:Self Name:Amy Rawls Payer ID:[id number] Group ID:[id number] Type:Not on file Address: [address] [place] [address] Advance Directives Documents on File Type Date Recorded 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 Advance Directives and Living Will 06/05/2024 1:56 PM medicare wellness visit Health Care Decision (hx) 07/16/2022 ADVANCE DIRECTIVE Health Care Decision (hx) 07/16/2022 ADVANCE DIRECTIVE Health Care Decision (hx) 07/16/2022 ADVANCE DIRECTIVE Health Care Decision (hx) 07/16/2022 ADVANCE DIRECTIVE Health Care Decision (hx) 07/16/2022 ADVANCE DIRECTIVE Health Care Decision (hx) 07/16/2022 ADVANCE DIRECTIVE Health Care Decision (hx) 07/16/2022 ADVANCE DIRECTIVE Care Teams Foot Drill Operator Relationship Specialty Start Date End Date Elidia Yarbrough MD [address] [place] [id number] PCP - General Internal Medicine 04/14/15
--- NOTE | 2024-10-01 00:26 | PC.NURSE ---
pt a&o, no sob or chest pian, provider into do rectal exam with the RN present, Ua ordered and collected, sent.
[2024-10-01 00:31] LABS: Appearance Urine Clear; Color Urine Yellow; Glucose Urine UA >=1000 mg/dL (Negative); Leukocyte Esterase Urine Small (1+) (Negative); Nitrite Urine Negative (Negative); PH 5.5 (5.0-9.0); Specific Gravity - Urine 1.025 (1.005-1.025); UMIC TRIGGER UACC YES; Urine Blood Negative (Negative); Urine Ketones Negative (Negative); Urine Protein 30 (1+) mg/dL (Neg-Trace)
[2024-10-01 00:36] LABS: Bacteria Urine None Seen (None Seen); Hyaline Casts Urine 0-2 /LPF (0-2); RBC Urine 0-2 /HPF (0-2); Squamous Epithelial Cell Urine 0-2 /HPF (0-2); UACC Culture Trigger YES; WBC Urine 21-50 /HPF (0-5)
[2024-10-01] MEDS: Nitrofurantoin Monohyd/M-Cryst 100 MG CAPSULE PO (00:54)
--- NOTE | 2024-10-01 00:57 | PC.NURSE ---
medicated per mar, reviewed discharge instructions with pt, pt verbalized understanding, no sign of distress, pt had a steady gait upon discharge. pt discharge to waiting room daughter called and will pick her up.
[2024-10-01 00:58] VITALS: BP 157/75; PULSE 86; RESP 20; TEMP 36.2; O2SAT 98
== END 2024-10-01 00:59 | disposition home or self-care (01) ==
PROVIDERS: Emergency Provider Emergency Medicine; PCP Internal Medicine
DX: K64.4 Residual hemorrhoidal skin tags (principal); N39.0 Urinary tract infection, site not specified; K62.89 Other specified diseases of anus and rectum
CPT/HCPCS: 81001; 87086; 99283; 99284

== ENCOUNTER 2024-10-23 09:17 | Outpatient (AMB) | payer OTHER, SELFPAY ==
--- NOTE | 2024-10-23 09:26 | A.OFFVIS_ITS ---
Vital Signs 10/23/24 09:32 Height 4 ft 11 in Weight 120 lb BMI 24.2 BP 133/63 Blood Pressure Location Lt brachial Position Sitting Pulse 89 Intake Visit Reasons: hemorrhoids Intake Note: Patient seen at [facility] ED for protrusion of hemorrhoid after having a bowel movement. Pt c/o: has accident with the bowels, stomach issues, diarrhea, denies blood in the stool Physical Security Specialist Required: No Accompanied by: Family/Other Allergies amoxicillin Allergy (Mild, Verified 10/23/24 09:33) Unknown Medication List - Last Reconciled 10/23/24 by Gadiel Guzman MD alendronate 70 mg PO QWEEK atorvastatin 80 mg PO DAILY blood sugar diagnostic (FreeStyle Lite Strips) As directed cefpodoxime 100 mg PO BID 5 days dulaglutide (Trulicity) mg subcut empagliflozin (Jardiance) 10 mg PO DAILY fluticasone propionate 50 mcg/actuation sprays intranasal gabapentin 100 mg PO TID glipizide ER 10 mg PO DAILY nitrofurantoin monohyd/m-cryst 100 mg (Macrobid) 100 mg PO Q12H 7 days valsartan 80 mg PO DAILY verapamil mg PO HPI HPI hemorrhoids: Details: 74-year-old male referred for question of hemorrhoid issues. She says that her main abdomen is actually diarrhea. She describes this as watery stools 2 to 3 times a day. She denies pain in the anus. She denies any bleeding per rectum. She denies any swelling or tenderness with her anus. It does not appear that her hemorrhoids actually bother her. [facility] Medical History (Updated 10/23/24 @ 10:01 by Gadiel Guzman MD) Hemorrhoids Diabetes mellitus Hypertension Surgical History H/O eye surgery Social History Advance Directives Date on File: 01/28/21 Review of Systems Const Denies chills and Denies fever(s) Card Denies chest pain, Denies dyspnea and Denies dyspnea on exertion Resp Denies cough, Denies dyspnea and Denies dyspnea on exertion GI Denies hematochezia and Denies change in bowel habits Denies hematuria Musc Denies back pain and Denies limited range of motion Neuro Denies focal weakness and Denies convulsions Psych Denies depression and Denies mood swings Physical Exam Vital Signs: Last Vital Signs Pulse 89 10/23/24 09:32 BP 133/63 10/23/24 09:32 BMI result Body Mass Index 24.2 Const General: comfortable and no acute distress Orientation/consciousness: patient oriented x3 Neck Neck: Yes no lymphadenopathy Resp Auscultation: clear to auscultation bilaterally Cardio Rhythm: regular rhythm GI Other: Rectal exam shows small external hemorrhoids, non thrombosed, noninflamed Palpation (GI): Soft to palpation, nontender and no guarding Neuro General: patient oriented x3 Office Procedures Anoscopy She was in kneeling devan-knife position. The anoscope was gently inserted. A full examination of the anal canal was done. She had small columns mixed internal external hemorrhoids. There was were noninflamed. There were nontender. There was no signs of any ulceration or fissure. There was no induration on digital exam [id number] Assessment & Plan Assessment & Plan (1) Hemorrhoids: Code(s): K64.9 - Unspecified hemorrhoids Category: Medical Plan: She has small internal external hemorrhoidal columns. These are noninflamed. She actually says that these do not bother her. I told her that her diarrhea is unrelated to her hemorrhoids. I told her that she does not require any hemorrhoid surgery at this time. I did advise her that if she has problems with diarrhea, she can start with fiber supplementation and she may need to see a engine head repairer in the future Her daughter was with her during the visit. Coding Level of Care Code New Pt Level 3 (94210) Diagnoses Hemorrhoids K64.9 CPT Codes Details - CPT: 37571-[id number] ([id number])
[2024-10-23 09:32] VITALS: BP 133/63; PULSE 89; BMI 24.2
--- OUTSIDE RECORDS SUMMARY | 2024-10-23 09:55 | XMS_ITS | Clinical Summary ---
Author Organization [facility] [address] [facility] lding Address [address] [place] [address] Phone Care Team Providers Care Silk Weaver Name Role Phone Elidia Yarbrough MD Primary [...] needed for Cough or Wheezing (As needed). 4 Active blood sugar diagnostic (FreeStyle Lite Strips) test strip 1 Device by In Vitro route daily. Dxe11.65 4 Active FREESTYLE LANCETS MISC 1 Device by Does not apply route daily Active blood-glucose meter kit Apply topically if needed (check blood sugar). 1 Device by Does not apply route daily. 1 each 4 Active valsartan (DIOVAN) 80 mg tablet Take 1 tablet (80 mg total) by mouth 1 (one) time each day. 90 tablet 1 5 Active alendronate (FOSAMAX) 70 mg tablet Take 1 tablet (70 mg total) by mouth every 7 (seven) days. 12 tablet 5 Active fluticasone propionate (FLONASE) 50 mcg/actuation nasal spray Administer 2 sprays into each nostril 1 (one) time each day. Shake gently. Before first use, prime pump. After use, clean tip and replace cap. 16 g 5 5 09/21/19 26 Active atorvastatin (LIPITOR) 80 mg tablet Take 1 tablet (80 mg total) by mouth 1 (one) time each day. 90 each 1 5 03/19/20 25 Active dulaglutide (Trulicity) 3 mg/0.5 mL pen injector injectionIndicati ons:Uncontrolled type 2 diabetes mellitus with hyperglycemia ([facility] V24, [facility] V28) Inject 0.5 mL (3 mg total) under the skin every 7 (seven) days. 2 mL 2 5 Active empagliflozin (Jardiance) 10 mg tablet Take 1 tablet (10 mg total) by mouth 1 (one) time each day in the morning. 90 tablet 1 5 03/19/20 25 Active gabapentin (NEURONTIN) 100 mg capsule Take 1 capsule (100 mg total) by mouth 3 (three) times a day. 90 capsule 1 5 Active Active Problems Problem Noted Date Diagnosed Date Urinary and fecal incontinence 06/03/2024 Compression fracture of cervical spine with rout ine healing 06/13/2023 Overview (04/08/2024): After a fall Iron deficiency 03/22/2023 Memory loss or impairment 03/20/2023 RBBB 05/14/2021 Overview (04/08/2024): Stress echo pending 05/14/2021 Stage 3 chronic kidney disease ([facility] V24, [facility] V28) 04/20/2020 Esophageal reflux 04/18/2019 Hiatal hernia 03/05/2019 Schatzki's ring 03/05/2019 Uncontrolled type 2 diabetes mellitus with hypoglycemia ([facility] V24, [facility] V28) 04/17/2017 Uncontrolled diabetes mellit us with hyperglycemia ([facility] V24, [facility] V28) 03/22/2016 Allergic rhinitis due to pollen 04/20/2015 Asthma exacerbation attacks 04/20/2015 Essential hypertension 04/20/2015 Gastroparesis 04/20/2015 Hypercholesteremia 04/20/2015 Osteoporosis 04/20/2015 Encounters Date Type Department Care Team Description 09/20/2024 10:15 AM EDT Office Visit Adult Medicine [facility] [address] [place] [phone] Irma Boggs PA Stage 3 chronic kidney disease, unspecified whether stage 3a or 3b CKD ([facility] V24, [facility] V28) (Primary Dx); Osteoporosis, unspecified osteoporosis type, unspecified pathological fracture presence; Essential hypertension; Memory loss or impairment; Uncontrolled type 2 diabetes mellitus with hyperglycemia ([facility] V24, [facility] V28); Hypercholesteremia; Post-nasal drip 08/26/2024 Telephone Adult [facility] [address] [place] [phone] Elidia Sorto MD Diarrhea 07/29/2024 Telephone Adult [address] [phone] Elidia Sorto MD from Last 3 [...] Type 2 diabetes mellitus wit hout complication (CMS/HCC V24, CMS/HCC V28) 04/20/2015 DX:Type 2 diab etes mellitus without complication (HCC) Asthma exacerbation attacks [...] Information Value Date Recorded Sex Assigned at Female 10/14/2024 3:53 PM EDT Legal Sex Female 5:37 AM EST Gender [...] 11:15 AM EDT Office Visit Adult Medicine - [address] [phone] Elidia Yarbrough MD [address] [place] [address] 11/08/2024 11:00 AM EDT Office Visit Adult [facility] [address] [place] [phone] Monica Diaz NP [address] [place] [address] 11/21/2024 2:00 PM EDT Office Visit Endocrinology [address] [phone] Daya Moreno MD [address] [place] [address] Health Maintenance Due Date Last Done Comments [...] unspecified whether stage 3a or 3b CKD ([facility] V24, [facility] V28) LIPID PANEL WITH REFLEX TO DIRECT LDL Routine 09/20/2024 11:18 AM EDT Hypercholesteremia HEMOGLOBIN A1C Routine 09/20/2024 11:18 AM EDT Uncontrolled type 2 diabetes mellitus with hyperglycemia ([facility] V24, [facility] V28) [facility] SCREENING DIGITAL Routine 04/06/2023 3:12 PM [...] mg/dL LAB CHEMISTRY METHOD 09/20/2024 2:49 PM [facility] Triglycerides 134 0 - 150 mg/dL LAB CHEMISTRY METHOD 09/20/2024 2:49 PM [facility] HDL 66 >=40 mg/dL LAB CHEMISTRY METHOD 09/20/2024 2:49 PM [facility] LDL Calculated 28 0 - 100 mg/dL LAB CHEMISTRY METHOD 09/20/2024 2:49 PM [facility] VLDL Cholesterol Moises 26.8 mg/dL LAB CHEMISTRY METHOD 09/20/2024 2:49 PM [facility] Non HDL Chol. (LDL+VLDL) 55 <145 mg/dL LAB CHEMISTRY METHOD 09/20/2024 2:49 PM [facility] Chol/HDL Ratio 1.8 0.0 - 4.4 LAB CHEMISTRY METHOD 09/20/2024 2:49 PM [facility] Blood Venous blood specimen / Unknown Venipuncture / Unknown 09/20/2024 11:18 AM EDT 09/20/2024 11:18 AM EDT Irma RICHARDSON LAB BLOOD ORDERABLES Final Result Performing Organization Address [facility]/ZIP Co de Phone Number [facility] [address] [place] [address], * (ABNORMAL) Hemoglobin A1c (09/20/2024 11:18 AM EDT) Pathologist [facility] Hemoglobin A1C 6.6(H) <6.5 % LAB CHEMISTRY METHOD 09/20/2024 2:47 PM EDT [facility] Mean Bld Glu Estim. 143 mg/dL LAB CHEMISTRY METHOD 09/20/2024 2:47 PM EDT [facility] Blood Venous blood specimen / Unknown Venipuncture / Unknown 09/20/2024 11:18 AM EDT 09/20/2024 11:18 AM EDT Irma RICHARDSON LAB BLOOD ORDERABLES Final Result [facility] [address] [place] [address], [place] [phone] * (ABNORMAL) Basic metabolic panel (09/20/2024 11:18 AM EDT) [facility] Sodium 135 133 - 145 mmol/L LAB CHEMISTRY METHOD 09/20/2024 2:49 PM EDT [facility] Potassium 5.1 3.5 - 5.5 mmol/L LAB CHEMISTRY METHOD 09/20/2024 2:49 PM EDT [facility] Chloride 109 96 - 110 mmol/L LAB CHEMISTRY METHOD 09/20/2024 2:49 PM EDT [facility] CO2 21 21 - 32 mmol/L LAB CHEMISTRY METHOD 09/20/2024 2:49 PM EDT [facility] Anion Gap 5 3 - 11 LAB CHEMISTRY METHOD 09/20/2024 2:49 PM EDT [facility] Glucose 182(H) 70 - 100 mg/dL LAB CHEMISTRY METHOD 09/20/2024 2:49 PM EDT [facility] BUN 31(H) 5 - 25 mg/dL LAB CHEMISTRY METHOD 09/20/2024 2:49 PM EDT [facility] Creatinine 1.67(H) 0.50 - 1.10 mg/dL LAB CHEMISTRY METHOD 09/20/2024 2:49 PM EDT [facility] eGFR 32(L) >=60 mL/min/1. 73m2 LAB CHEMISTRY METHOD 09/20/2024 2:49 PM EDT [facility] Comment:Calculation based on the??Chronic Kidney Disease Epidemiology Collaboration (CKD-EPI) equation refit??without adjustment for race. BUN/Creatinine Ratio 18.6 LAB CHEMISTRY METHOD 09/20/2024 2:49 PM EDT [facility] Calcium 8.9 8.5 - 10.5 mg/dL LAB CHEMISTRY METHOD 09/20/2024 2:49 PM EDT [facility] Blood Venous blood specimen / Unknown Venipuncture / Unknown 09/20/2024 11:18 AM EDT 09/20/2024 11:18 AM EDT us Irma RICHARDSON LAB BLOOD ORDERABLES Final Result [facility] [address] [place] [address], [place] [phone] * [facility] SCREENING DIGITAL (04/06/2023 3:12 PM EDT) Anatomical Region Laterality Modality Mammography 04/05/2023 10:2 0 AM EDT Narrative 04/06/2023 3:12 PM EDT [facility] Diagnostic Imaging Department [address] [place] [address] Patient: ??AMY RAWLS ?/Age/Sex: 1950 72 - F Unit#: ??[id number] ? Location/Status: ??SPDIMAM/REG CLI ? Mnemonic/Ordering Site: ??DIGSC/SPMAM Ordering Physician: ??MATT ROSENBERG [facility] Screening Digital - 04/05/23 - 1047 Report Status:Signed EXAM: [facility] Screening Digital EXAM DATE AND TIME: 04/05/2023 10:47 AM HISTORY: ??Screening. COMPARISON: ??07/20/20, 07/17/19, 04/03/15 TECHNIQUE: Bilateral digital breast tomosynthesis was performed in the CC and MLO projections. Computer aided detection with Meetrics 3D 3.1 was employed. TISSUE DENSITY: b. [...] Procedure Note Funmi Major MD - 08/01/2023 [facility] Diagnostic Imaging Department [address] [place] [id number] Patient: AMY RAWLSO.B./Age/Sex: 1950 - 72 - F Unit#: [id number] Location/Status: [facility] CLI Mnemonic/Ordering Site: [facility] Ordering Physician: MATT ROSENBERG [facility] Screening Digital - 04/05/23 - 1047 Report Status:Signed EXAM: [facility] Screening Digital EXAM DATE AND TIME: 04/05/2023 10:47 AM HISTORY: Screening. COMPARISON: 07/20/20, 07/17/19, 04/03/15 TECHNIQUE: Bilateral digital breast tomosynthesis was performed in the CCand MLO projections. Computer aided detection with Meetrics 3D 3.1was employed. TISSUE DENSITY: b. 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
== END 2024-10-23 09:57 | disposition home or self-care (01) ==
LOC: HO.HGS 09:18
PROVIDERS: PCP Internal Medicine; Visit Provider Surgery
DX: K64.8 Other hemorrhoids (principal)
CPT/HCPCS: 46600; 99203

== ENCOUNTER → 2024-10-23 09:17 | Outpatient (BNVA) | payer OTHER, SELFPAY | PROVIDERS: PCP Internal Medicine; Visit Provider Surgery | DX: K64.9 Unspecified hemorrhoids (principal) | CPT/HCPCS: 46600; 99202 ==